=== PATIENT | female | born 1985 | race Caucasian/White ===

== ENCOUNTER 2018-05-02 10:18 | Emergency (ER) | payer BC ==
[~2018-05-02] VITALS: Ht 167.6 cm; Wt 49.9 kg
[2018-05-02] MEDS ORDERED: NKM (10:29)
[2018-05-02 11:06] LABS: BASOPHILS % (AUTO) 0.9 % (0.0-2.0); EOSINOPHILS % (AUTO) 0.1 % (0.0-3.0); HEMATOCRIT 39.4 % (37.0-47.0); HEMOGLOBIN 13.1 G/DL (12.0-16.0); LYMPHOCYTES % (AUTO) 12.2 % (20.0-45.0); MEAN CORPUSCULAR VOLUME 86 FL (80-99); MONOCYTES % (AUTO) 6.1 % (1.0-10.0); NEUTROPHILS % (AUTO) 80.7 % (45.0-75.0); PLATELET COUNT 249 K/UL (150-450); RED CELL DISTRIBUTION WIDTH 12.8 % (11.6-14.8); WHITE BLOOD COUNT 7.7 K/UL (4.8-10.8)
[2018-05-02 11:26] LABS: APPEARANCE,URINE CLOUDY; BILIRUBIN, URINE NEGATIVE (NEGATIVE); GLUCOSE, URINE (UA) NEGATIVE (NEGATIVE); KETONES,URINE 4+ (NEGATIVE); LEUKOCYTE ESTERASE ,URINE 1+ (NEGATIVE); NITRITE,URINE NEGATIVE (NEGATIVE); PH,URINE 6 (4.5-8.0); PROTEIN,URINE 2+ (NEGATIVE); UROBILINOGEN,URINE NORMAL MG/DL (0.0-1.0)
[2018-05-02 11:29] LABS: COLOR,URINE YELLOW
[2018-05-02 11:36] LABS: ANION GAP 11 mmol/L (5-15); BLOOD UREA NITROGEN 14 mg/dL (7-18); CALCIUM 9.1 MG/DL (8.5-10.1); CARBON DIOXIDE 27 MMOL/L (21-32); CHLORIDE 99 MMOL/L (98-107); CREATININE 0.7 MG/DL (0.55-1.30); POTASSIUM 3.2 MMOL/L (3.5-5.1); SODIUM 137 MMOL/L (136-145)
[2018-05-02 11:45] LABS: ALANINE AMINOTRANSFERASE 27 U/L (12-78); ALBUMIN 4.2 G/DL (3.4-5.0); ALKALINE PHOSPHATASE 74 U/L (46-116); ASPARTATE AMINO TRANSFERASE 20 U/L (15-37)
[2018-05-02 11:47] LABS: BILIRUBIN,DIRECT 0.2 MG/DL (0.0-0.3)
[2018-05-02 12:30] VITALS: BP 127/87
--- NOTE | 2018-05-02 13:14 | Emergency Room Report ---
History of Present Illness General Chief Complaint: Nausea Source: Patient Present Illness HPI Patient states she is about 2 weeks . She found a she is this morning. She presents to the emergency department because she has had nausea, vomiting and urinary frequency. She states she has a history of recurrent urinary tract infections. She states that she is in rehabilitation for heroin abuse. She states she had been clean for a month until 2 days ago when she relapsed because she states her boyfriend was arrested that night. She denies fever or chills. She denies abnormal vaginal discharge. She denies pelvic pain. She plans and moving to [place] to live with her family in keeping this . She has no other complaints. Allergies: Coded Allergies: HALOPERIDOL (Verified Allergy, Unknown, 05/02/18) Patient History Past Medical History: none, see triage record, other - Heroin abuse Social History: Reports: drug use; Denies: smoking, alcohol use Last Menstrual Period: 04/04/18 Now: Yes : 3 Para: 0 Reviewed Nursing Documentation: PMH: Agreed; PSxH: Agreed Nursing Documentation-PMH Past Medical History: No Stated History Review of Systems All Other Systems: negative except mentioned in HPI Physical Exam Vital Signs Date Time Temp Pulse Resp B/P (MAP) Pulse Ox O2 Delivery O2 Flow Rate FiO2 05/02/18 10:23 98.7 120 16 127/87 97 98.8 Sp02 EP Interpretation: reviewed, normal General Appearance: no apparent distress, alert, GCS 15, non-toxic Head: normocephalic, atraumatic Eyes: bilateral eye normal inspection, bilateral eye PERRL ENT: hearing grossly normal, normal pharynx, no angioedema, normal voice Neck: full range of motion, supple/symm/no masses Respiratory: chest non-tender, lungs clear, normal breath sounds, speaking full sentences Cardiovascular #1: regular rate, rhythm, no edema Gastrointestinal: normal bowel sounds, non tender, soft, non-distended, no guarding, no rebound Rectal: deferred Musculoskeletal: back normal, gait/station normal, normal range of motion, non- tender Neurologic: alert, oriented x3, responsive, motor strength/tone normal, sensory intact, speech normal Psychiatric: judgement/insight normal, memory normal, mood/affect normal, no suicidal/homicidal ideation Skin: normal color, no rash, warm/dry, well hydrated Medical Decision Making Diagnostic Impression: Primary Impression: Nausea and vomiting in ER Course This patient complains of nausea or vomiting. She had no nausea or vomiting here in the emergency department. Laboratory workup was unremarkable to include CBC, CMP and urinalysis. There is no evidence of a urinary tract infection. Because of her symptoms, however, did plan on placing the patient on a course of Keflex. However, the patient eloped without her discharge paperwork. Overall, she is well-appearing and nontoxic. Ultrasound of the pelvis showed a possible early intrauterine . The patient's abdominal exam is benign. I have a low suspicion for ectopic at this time. The patient was educated on the dangers of drug use and the effect on development of the fetus. The patient eloped without her discharge paperwork. She was educated to obtain vitamins. Laboratory Tests Test 05/02/18 10:34 05/02/18 10:45 Urine Color Yellow Urine Appearance Cloudy Urine pH 6 (4.5-8.0) Urine Specific [place] 1.020 (1.005-1.035) Urine Protein 2+ (NEGATIVE) H Urine Glucose (UA) Negative (NEGATIVE) Urine Ketones 4+ (NEGATIVE) H Urine Blood Negative (NEGATIVE) Urine Nitrite Negative (NEGATIVE) Urine Bilirubin Negative (NEGATIVE) Urine Urobilinogen Normal MG/DL (0.0-1.0) Urine Leukocyte Esterase 1+ (NEGATIVE) H Urine RBC 0-2 /HPF (0 - 2) Urine WBC 2-4 /HPF (0 - 2) Urine Squamous Epithelial Cells Many /LPF (NONE/OCC) H Urine Bacteria Few /HPF (NONE) White Blood Count 7.7 K/UL (4.8-10.8) Red Blood Count 4.60 M/UL (4.20-5.40) Hemoglobin 13.1 G/DL (12.0-16.0) Hematocrit 39.4 % (37.0-47.0) Mean Corpuscular Volume 86 FL (80-99) Mean Corpuscular Hemoglobin 28.4 PG (27.0-31.0) Mean Corpuscular Hemoglobin Concent 33.2 G/DL (32.0-36.0) Red Cell Distribution Width 12.8 % (11.6-14.8) Platelet Count 249 K/UL (150-450) Mean Platelet Volume 7.2 FL (6.5-10.1) Neutrophils (%) (Auto) 80.7 % (45.0-75.0) H Lymphocytes (%) (Auto) 12.2 % (20.0-45.0) L Monocytes (%) (Auto) 6.1 % (1.0-10.0) Eosinophils (%) (Auto) 0.1 % (0.0-3.0) Basophils (%) (Auto) 0.9 % (0.0-2.0) Sodium Level 137 MMOL/L (136-145) Potassium Level 3.2 MMOL/L (3.5-5.1) L Chloride Level 99 MMOL/L (98-107) Carbon Dioxide Level 27 MMOL/L (21-32) Anion Gap 11 mmol/L (5-15) Blood Urea Nitrogen 14 mg/dL (7-18) Creatinine 0.7 MG/DL (0.55-1.30) Estimate Glomerular Filtration Rate > 60 mL/min (>60) Glucose Level 107 MG/DL (74-106) H Calcium Level 9.1 MG/DL (8.5-10.1) Total Bilirubin 2.0 MG/DL (0.2-1.0) H Direct Bilirubin 0.2 MG/DL (0.0-0.3) Aspartate Amino Transferase (AST) 20 U/L (15-37) Alanine Aminotransferase (ALT) 27 U/L (12-78) Alkaline Phosphatase 74 U/L (46-116) Total Protein 8.2 G/DL (6.4-8.2) Albumin 4.2 G/DL (3.4-5.0) Globulin 4.0 g/dL Albumin/Globulin Ratio 1.0 (1.0-2.7) Lipase 57 U/L (73-393) L Human Chorionic Gonadotropin, Quant 464 mIU/mL (1-6) H CT/MRI/US Diagnostic Results CT/MRI/US Diagnostic Results : Imaging Test Ordered: Pelvic US Impression Possible early GS. See official report in EMR Last Vital Signs Date Time Temp Pulse Resp B/P (MAP) Pulse Ox O2 Delivery O2 Flow Rate FiO2 05/02/18 10:23 98.7 120 16 127/87 97 98.8 Status: improved Disposition: ELOPED Condition: Stable Referrals: NOT CHOSEN IPA/MD,REFERRING (PCP) Patient Instructions: Nausea and Vomiting, Adult Federica Erickson DO May 02, 2018 13:14
[2018-05-02 13:17] VITALS: BP 127/87
[2018-05-02] MEDS ORDERED: CEPHALEXIN500 MG ORAL (13:29)
--- NOTE | 2018-05-02 13:50 | Diagnostic Imaging Report ---
Indication: Abdominal pain. Positive test. Technique: Transabdominal and endovaginal pelvic ultrasound was performed. Findings: The uterus measures 6.9 x 4.9 x 4.2 cm. Endometrium measures 1.3 cm in thickness. There is a anechoic structure in the endometrium which may represent a very early gestational sac. This is too small for dating by ultrasound. A second, similar appearing structure is also noted, possibly a second early gestational sac (which would suggest dichorionic diamniotic twin). These findings however are nonspecific at this stage and correlation with trended beta-HCG and follow-up ultrasound is recommended until diagnosis made. The right ovary measures 3.9 x 3.6 x 2.1 cm/15 mL. The left ovary measures 2.1 x 2.7 x 2.4 centers/10 mL. Color Doppler flow noted to the bilateral ovaries. There is a small amount of free pelvic fluid, likely physiologic. Impression: Two subcentimeter intrauterine anechoic cystic structures which may potentially represent early gestational sacs (suggesting possible twin ). Additional considerations include decidual cysts. Recommend correlation with trended beta-HCG and short-term interval repeat ultrasound until diagnosis made.
== END 2018-05-02 13:41 | disposition left against medical advice (07) ==
LOC: EMR 11:40
DX: O21.9 Vomiting of pregnancy, unspecified (principal); Z3A.01 Less than 8 weeks gestation of pregnancy
CPT/HCPCS: 36415; 76801; 80053; 81003; 82248; 83690; 84702; 85025; 96361; 96374; 99284; J2405